=== PATIENT | male | born 1980 | race Caucasian/White ===

== ENCOUNTER 2016-09-08 18:58 | Emergency (ER) | payer MEDICAID, OTHER ==
[~2016-09-08] VITALS: Ht 177.8 cm; Wt 74.8 kg
[2016-09-08 18:58] VITALS: BP 104/81
[~2016-09-08 18:58] MED LIST: /MOXI40TA OR; AMBI10TA OR; ASPI81TA3 OR; BUSP10TA2 OR; FLEXERIL PO; HUMUINJ; HUMUINJ IJ; INSULANT SC; INSURSD SC; KLON0.5T OR; LISI2.5T OR; LYRI100C10 PO; METH40TA PO; NICO14DI3 TD; NICO2GUM8 PO; NYSTATIN ORAL PO; PERC5TAB8 OR; ROSU10TA OR; TYLE650T30 PO; XANA0.5T PO
[2016-09-08] MEDS ORDERED: LEVEMIR (INSULIN DETEMIR) 1 UNITS/0.01ML SC ONE (21:45)
[2016-09-08] MEDS ORDERED: AMOX875T PO (21:57)
[2016-09-08] MEDS ORDERED: INSULANT SC (21:57)
[2016-09-08] MEDS ORDERED: INSURSD SC (21:57)
[2016-09-08] MEDS ORDERED: IBUP600T26 PO (21:57)
[2016-09-08] MEDS ORDERED: AMOXICILLIN 500 MG CAP PO ONE (22:00)
[2016-09-08] MEDS ORDERED: MAGIC MOUTHWASH SUSPENSION BTL SS ONE (22:00)
[2016-09-08] MEDS ORDERED: IBUPROFEN 600 MG TAB PO ONE (22:15)
== END 2016-09-08 22:07 | disposition home or self-care (01) ==
LOC: M ED 19:50
DX: K08.89 Other specified disorders of teeth and supporting structures (principal); E10.9 Type 1 diabetes mellitus without complications; Z76.0 Encounter for issue of repeat prescription; F33.9 Major depressive disorder, recurrent, unspecified; F41.9 Anxiety disorder, unspecified; J45.909 Unspecified asthma, uncomplicated; G62.9 Polyneuropathy, unspecified; F17.200 Nicotine dependence, unspecified, uncomplicated; Z79.899 Other long term (current) drug therapy

== ENCOUNTER → 2018-01-18 | Outpatient (REF) | LOC: M SMT 15:07 | DX: Z00.00 Encounter for general adult medical examination without abnormal findings (principal) ==

== ENCOUNTER 2025-01-17 08:38 | Emergency (ER) | payer MEDICAID, OTHER ==
[~2025-01-17] VITALS: Ht 177.8 cm; Wt 85.7 kg
[~2025-01-17 08:38] MED LIST changes: -/MOXI40TA OR; +AMOX875T PO; +AVEL1TAB2 OR; +CRES10TA32 OR; +IBUP600T42 PO; +INSU100V19 SC; -INSURSD SC; -LYRI100C10 PO; +PREG-35 PO; -ROSU10TA OR
[2025-01-17 09:46] VITALS: TEMP 97.2
[2025-01-17] MEDS: PROCHLORPERAZINE 10MG/2ML VIAL IV ONE (09:59)
[2025-01-17] MEDS: diphenhydrAMINE 50 MG/ML VIAL IV STA (10:00)
[2025-01-17] MEDS: NS (Normal Saline) 0.9% 1,000 ML IV ONE (10:00)
[2025-01-17 10:31] VITALS: O2SAT 99
[2025-01-17 10:34] VITALS: BP 148/90
== END 2025-01-17 10:53 | disposition home or self-care (01) ==
LOC: M ED 08:38
DX: R51.9 Headache, unspecified (principal); E10.9 Type 1 diabetes mellitus without complications; F19.10 Other psychoactive substance abuse, uncomplicated; Z87.891 Personal history of nicotine dependence; Z79.4 Long term (current) use of insulin
CPT/HCPCS: 96374; 96375; 99284; J0780; J1200